=== PATIENT | female | born 1965 | race Caucasian/White ===

== ENCOUNTER 2023-08-01 06:26 | Inpatient (IN) ==
[~2023-08-01 06:26] MED LIST: Metoclopramide 5 MG/ML VIAL (10 mg) IV PRN; Naloxone 0.4 mg VIAL 0.4 mg/ml 1 ml VIAL IV PRN; fentaNYL 100 mcg/2 ml 50 MCG/ML VIAL IV PRN
[2023-08-01] MEDS ORDERED: Tranexamic Acid 1 GM/100ML BAG 2,000 MG/200 ML BAG IV ONE (07:07)
[2023-08-01] MEDS ORDERED: ceFAZolin 2 GM in NS PREMIX 2 GM/100 ML BAG IVPB ONE (07:07)
[2023-08-01 07:27] LABS: Rapid COVID-19 Molecular Undetected (Undetected)
[2023-08-01] MEDS ORDERED: Midazolam 2 mg/2 ml VIAL 1 mg/ml 2 ml VIAL (2 mg) ONE (08:23)
[2023-08-01] MEDS ORDERED: Lidocaine 2% PF 5 ML VIAL ONE (08:24)
[2023-08-01] MEDS ORDERED: Propofol 10 MG/ML 20 ML BTL ONE ×2 (09:41→10:29)
[2023-08-01] MEDS ORDERED: fentaNYL 250 mcg/5 ml 50 MCG/ML 5 ml VIAL (250 MCG) ONE (09:44)
[2023-08-01] MEDS ORDERED: HYDROmorphone 0.5 MG/0.5 ML SYRINGE ONE (09:44)
[2023-08-01] MEDS ORDERED: ROPIVACAINE 5 MG/ML 30 ML BTL (0.5%) ONE (09:47)
[2023-08-01] MEDS ORDERED: Dexamethasone IV 4 MG/ML VIAL 1 ml VIAL ONE (10:40)
[2023-08-01] MEDS ORDERED: Ondansetron 4 mg VIAL 2 MG/ML 2 ml VIAL ONE (10:40)
[2023-08-01] MEDS ORDERED: Phenylephrine 40 mcg/mL 10mL (400mcg) SYRINGE ONE (10:56)
[2023-08-01] MEDS ORDERED: Ondansetron ODT 4 mg TAB 4 MG TAB PO PRN (11:02)
[2023-08-01] MEDS ORDERED: Ondansetron 4 mg VIAL 2 MG/ML 2 ml VIAL IV PRN (11:02)
[2023-08-01] MEDS ORDERED: Lactulose 30 ml UDC PO PRN (11:02)
[2023-08-01] MEDS ORDERED: Morphine 2 MG/ML SYRINGE IV PRN (11:02)
[2023-08-01] MEDS ORDERED: Magnesium Hydroxide LIQ 30 ML UDC PO PRN (11:02)
[2023-08-01] MEDS: Ondansetron 4 mg VIAL 2 MG/ML 2 ml VIAL IV PRN (14:52)
[2023-08-01] MEDS: Lactated Ringers 1000 ml BAG 1,000 ML IV SCH ×2 (14:53→15:20)
[2023-08-01] MEDS: Buffered Lidocaine 1% SYRIN 1 ml INTRADERM ONE (15:20)
[2023-08-01] MEDS: ceFAZolin 1 GM ADVAN 1 GM in NS 0.9% 50 ML 50 ML IVPB SCH (18:43)
[2023-08-01] MEDS: Magnesium Hydroxide LIQ 30 ML UDC PO SCH (21:19)
[2023-08-02 06:46] LABS: Hematocrit 30.2 % (35-45); Hemoglobin 10.3 g/dL (11.5-14.3); Mean Platelet Volume 9.2 fL (7.5-11.2); Platelet Count 188 10^3/uL (150-450)
[2023-08-02 07:43] LABS: Calcium 8.6 mg/dL (8.6-10.3); Creatinine, Serum 0.76 mg/dL (0.51-0.95); Potassium 3.9 mmol/L (3.5-5.0); eGFR CKD-EPI 91.9 (>60)
[2023-08-02] MEDS: Vitamin THERAPEUTIC TAB PO SCH (09:48)
[2023-08-02 14:03] VITALS: BP 116/88
== END 2023-08-02 16:40 | disposition home or self-care (01) | DRG 301 ==
LOC: AA 06:26 → SSU 13:26
PROVIDERS: ADMIT Orthopaedic Surgery Adult Reconstructive Orthopaedic Surgery; ATTEND Orthopaedic Surgery Adult Reconstructive Orthopaedic Surgery